=== PATIENT | female | born 1950 | race Caucasian/White ===

== ENCOUNTER 2024-06-16 08:19 | Outpatient (CLI) | payer BC | END 2024-06-16 08:20 | disposition home or self-care (01) | LOC: CSHSLEEP 08:19 | PROVIDERS: ATTEND Family Medicine | DX: G47.10 Hypersomnia, unspecified (principal); G47.9 Sleep disorder, unspecified; R25.8 Other abnormal involuntary movements; R51.9 Headache, unspecified; R41.9 Unspecified symptoms and signs involving cognitive functions and awareness; R06.83 Snoring | CPT/HCPCS: 95810 ==